=== PATIENT | female | born 1970 | race African-American/Black ===

== ENCOUNTER 2025-04-01 17:00 | Emergency (ER) | payer MEDICAID ==
[~2025-04-01] VITALS: Ht 170.2 cm; Wt 84.0 kg
[2025-04-01 17:13] VITALS: O2SAT 99
[2025-04-01] MEDS ORDERED: ALBU18HF2 IH (17:43)
[2025-04-01 17:48] VITALS: BP 126/78; PULSE 71; RESP 18; TEMP 36.9; O2SAT 99
== END 2025-04-01 17:49 | disposition home or self-care (01) ==
LOC: ER 17:00
DX: J45.909 Unspecified asthma, uncomplicated (principal); Z76.0 Encounter for issue of repeat prescription; Z88.0 Allergy status to penicillin; Z88.1 Allergy status to other antibiotic agents
CPT/HCPCS: 99281

== ENCOUNTER 2025-04-17 18:28 | Emergency (ER) | payer MEDICAID ==
[~2025-04-17] VITALS: Ht 172.7 cm; Wt 82.0 kg
[~2025-04-17 18:28] MED LIST: ALBU18HF2 IH; SULF1TAB48 MT
[2025-04-17 18:32] VITALS: O2SAT 98
[2025-04-17] MEDS: MECLIZINE 25MG TABLET PO STA (19:38)
[2025-04-17 20:16] LABS: BASOPHILS % 0.5 % (0.0-2.0); EOSINOPHILS % 1.1 % (0.0-5.0); HEMATOCRIT. 38.8 % (36.0-48.0); HEMOGLOBIN. 12.7 g/dL (12.0-16.0); LYMPHOCYTES % 24.7 % (20.0-50.0); MEAN CORPUSCULAR HEMOGLOBIN 29.7 pg (28.0-32.0); MEAN CORPUSCULAR HGB CONC 32.8 g/dL (31.0-37.0); MEAN CORPUSCULAR VOLUME 90.4 fL (81.0-99.0); MEAN PLATELET VOLUME 7.3 fl (7.4-10.4); NEUTROPHILS % 67.7 % (40.0-76.0); PLATELET 263 x1000/uL (130-400); RED BLOOD CELL COUNT 4.29 mill/uL (4.2-5.4); RED CELL DISTRIBUTION WIDTH 14.1 % (11.6-14.6); WHITE BLOOD COUNT 6.2 x1000/uL (4.5-11.0)
[2025-04-17 20:17] LABS: CARBON DIOXIDE 25 mEq/L (21-32); CHLORIDE 107 mEq/L (98-107); POTASSIUM 3.7 mEq/L (3.5-5.1); SODIUM 138 mEq/L (136-145)
[2025-04-17 20:18] LABS: CALCIUM 9.6 mg/dL (8.7-10.4)
[2025-04-17 20:23] LABS: CREATININE 1.2 mg/dL (0.6-1.0); GLUCOSE 110 mg/dL (70-105); TROPONIN I HIGH SENSITIVITY 13 ng/L (3.0-34); UREA NITROGEN BLOOD 12 mg/dL (9-23)
[2025-04-17 20:25] LABS: PHOSPHORUS 3.4 mg/dL (2.5-4.9)
[2025-04-17] MEDS ORDERED: MECL-299 MT (20:34)
[2025-04-17 20:51] VITALS: BP 119/75; PULSE 70; RESP 16; TEMP 36.7; O2SAT 98
== END 2025-04-17 20:56 | disposition home or self-care (01) ==
LOC: ER 18:28
DX: R42 Dizziness and giddiness (principal); J45.909 Unspecified asthma, uncomplicated; Z88.1 Allergy status to other antibiotic agents; Z88.0 Allergy status to penicillin
CPT/HCPCS: 99284; 71045; 80048; 83880; 83735; 84100; 85025; 84484; 36415; J8597